=== PATIENT | male | born 2000 | race African-American/Black ===

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

== ENCOUNTER 2020-03-29 01:52 | Emergency (ER) | payer SELFPAY ==
[2020-03-29] MEDS ORDERED: Sodium Chloride 0.9% 1,000 ML ONE (02:08)
[2020-03-29] MEDS ORDERED: Morphine 4 MG/ML VIAL ONE (02:16)
[2020-03-29] MEDS ORDERED: Ondansetron PF 4 MG/2 ML Vial ONE (02:16)
[2020-03-29 02:19] LABS: #Basophils 0.1 thou/uL (0.0-0.2); #Eosinphils 0.3 thou/uL (0.0-0.7); #Lymphocytes 3.1 thou/uL (1.20-3.40); #Monocytes 0.8 thou/uL (0.11-0.59); #Neutrophils 2.7 thou/uL (1.40-6.50); %Basophils 1.5 % (0.0-1.0); %Eosinophils 4.7 % (0.0-10.0); %Lymphocytes 43.8 % (28.0-48.0); %Monocytes 11.2 % (0.0-4.0); %Neutrophils 38.7 % (31.0-61.0); Mean Corpuscular HGB CONC 31.9 g/dL (32.0-36.0); Mean Platelet Volume 7.4 fL (7.4-10.4); Platelet Count 308 thou/uL (130-400); RBC Distribution Width 11.5 % (11.5-14.5); Red Blood Cell (RBC) Count 4.99 mill/uL (4.00-5.20)
[2020-03-29 02:28] LABS: INR-International Normal Ratio 1.2; PTT 28.6 sec (22.9-36.1); Prothrombin Time 15.3 sec (12.0-14.7)
[2020-03-29] MEDS ORDERED: Adacel (T-DAP) 0.5 ML SYRINGE ONE (02:32)
[2020-03-29 02:35] LABS: ALT (SGPT) 18 U/L (8-55); AST (SGOT) 23 U/L (10-45); Albumin 4.3 g/dL (3.5-5.0); Alkaline Phosphatase 70 U/L (50-130); Anion Gap 16 mmol/L (10-20); BUN (Urea Nitrogen) 12 mg/dL (8.4-21.0); Bilirubin, Total 0.3 mg/dL (0.2-1.2); Calc. Creatinine Clearance 0 mL/min (70-130); Calcium 9.6 mg/dL (7.8-10.44); Carbon Dioxide 24 mmol/L (22-29); Chloride 105 mmol/L (98-107); Estimated GFR-MDRD 64; Globulin 3.1 g/dL (2.4-3.5); Glucose 113 mg/dL (70-105); Potassium 3.3 mmol/L (3.5-5.1); Protein, Total 7.4 g/dL (6.0-8.3); Sodium 142 mmol/L (136-145)
[2020-03-29] MEDS ORDERED: CEFAZOLIN 1 GM VIAL ONE (02:54)
[2020-03-29] MEDS ORDERED: Sodium Chloride 0.9% 100 ML ONE (02:55)
[2020-03-29] MEDS ORDERED: Sodium Chloride 0.9% 0 ML ONE (02:56)
[2020-03-29] MEDS ORDERED: Morphine 2 MG/ML SYRINGE ONE (03:07)
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
== END 2020-03-29 03:26 | disposition short-term general hospital (02) ==
LOC: NAV ERS 01:52
DX: S71.102A Unspecified open wound, left thigh, initial encounter (principal); F90.9 Attention-deficit hyperactivity disorder, unspecified type; X93.XXXA Assault by handgun discharge, initial encounter
CPT/HCPCS: 71045; 74018; 80053; 85025; 85610; 85730; 90471; 90715; 94760; 96361; 96365; 96375; 96376; J0690; J2270; J2405; J3490; J7050

== ENCOUNTER 2020-04-22 12:38 | Emergency (ER) | payer SELFPAY ==
[2020-04-22] MEDS ORDERED: CEFAZOLIN 1 GM VIAL ONE (12:51)
[2020-04-22] MEDS ORDERED: Morphine 4 MG/ML VIAL ONE ×2 (12:51→14:45)
[2020-04-22] MEDS ORDERED: Ondansetron PF 4 MG/2 ML Vial ONE (12:51)
[2020-04-22] MEDS ORDERED: Sodium Chloride 0.9% 100 ML ONE (12:51)
--- NOTE | 2020-04-22 13:09 | RAD ---
EXAM: 3 views of the left index finger HISTORY: Finger pain COMPARISON: None FINDINGS: There has been amputation of the tip of the index finger through the distal phalanx. No sof t tissue swelling is seen. No degenerative changes are present. No radiopaque foreign body is seen. 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
[2020-04-22 14:03] LABS: #Basophils 0.1 thou/uL (0.0-0.2); #Eosinphils 0.3 thou/uL (0.0-0.7); #Lymphocytes 2.5 thou/uL (1.20-3.40); #Monocytes 0.6 thou/uL (0.11-0.59); #Neutrophils 1.9 thou/uL (1.40-6.50); %Basophils 2.4 % (0.0-1.0); %Eosinophils 5.7 % (0.0-10.0); %Lymphocytes 45.7 % (28.0-48.0); %Monocytes 10.5 % (0.0-4.0); %Neutrophils 35.7 % (31.0-61.0); Hemoglobin 14.3 g/dL (14.0-18.0); Mean Corpuscular HGB CONC 31.2 g/dL (32.0-36.0); Mean Corpuscular Hemoglobin 27.8 pg (25.0-35.0); Mean Corpuscular Volume 88.9 fL (78.0-98.0); Mean Platelet Volume 6.9 fL (7.4-10.4); Platelet Count 324 thou/uL (130-400); RBC Distribution Width 11.9 % (11.5-14.5); Red Blood Cell (RBC) Count 5.14 mill/uL (4.00-5.20); White Blood Cell (WBC) Count 5.4 thou/uL (4.8-10.8)
[2020-04-22 14:07] LABS: ALT (SGPT) 22 U/L (8-55); AST (SGOT) 23 U/L (5-34); Albumin 4.5 g/dL (3.5-5.0); Alkaline Phosphatase 134 U/L (50-130); Anion Gap 13 mmol/L (10-20); BUN (Urea Nitrogen) 9 mg/dL (8.9-20.6); Bilirubin, Total 0.6 mg/dL (0.2-1.2); Calc. Creatinine Clearance 0 mL/min (70-130); Calcium 9.8 mg/dL (7.8-10.44); Carbon Dioxide 26 mmol/L (22-29); Chloride 104 mmol/L (98-107); Estimated GFR-MDRD Greater than 90; Globulin 3.3 g/dL (2.4-3.5); Glucose 90 mg/dL (70-105); Potassium 3.8 mmol/L (3.5-5.1); Protein, Total 7.8 g/dL (6.0-8.3); Sodium 139 mmol/L (136-145)
== END 2020-04-22 14:54 | disposition short-term general hospital (02) ==
LOC: NAV ERS 12:38
DX: S68.111A Complete traumatic metacarpophalangeal amputation of left index finger, initial encounter (principal); F90.9 Attention-deficit hyperactivity disorder, unspecified type; W30.9XXA Contact with unspecified agricultural machinery, initial encounter
CPT/HCPCS: 80053; 85025; 96365; 96375; 96376; J0690; J2270; J2405; J3490

== ENCOUNTER 2021-01-02 05:22 | Emergency (ER) | payer SELFPAY ==
[2021-01-02] MEDS ORDERED: Acetaminophen 500 MG TAB ONE (05:49)
[2021-01-02] MEDS ORDERED: Dexamethasone 20 MG/5 ML VIAL ONE (05:57)
== END 2021-01-02 06:35 | disposition home or self-care (01) ==
LOC: NAV ERS 05:22
DX: J02.9 Acute pharyngitis, unspecified (principal); Z20.822 Contact with and (suspected) exposure to COVID-19
CPT/HCPCS: 87081; 87430; 99283; J1100

== ENCOUNTER 2021-11-29 23:20 | Emergency (ER) | payer SELFPAY ==
[2021-11-29] MEDS ORDERED: Ibuprofen 800 MG TAB ONE (23:40)
[2021-11-30] MEDS ORDERED: Dexamethasone 4 MG TAB ONE (00:05)
== END 2021-11-30 00:45 | disposition home or self-care (01) ==
LOC: NAV ERS 23:20
DX: J02.9 Acute pharyngitis, unspecified (principal)
CPT/HCPCS: 87081; 87430; 99283; J8540

== ENCOUNTER 2022-07-06 03:17 | Emergency (ER) | payer SELFPAY | END 2022-07-06 03:56 | disposition home or self-care (01) | LOC: NAV ERS 03:17 | DX: J45.909 Unspecified asthma, uncomplicated (principal); Z86.16 Personal history of COVID-19 | CPT/HCPCS: 99283 ==

== ENCOUNTER 2022-09-04 22:11 | Emergency (ER) | payer SELFPAY | END 2022-09-04 23:29 | disposition home or self-care (01) | LOC: NAV ERS 22:11 | DX: B34.9 Viral infection, unspecified (principal) | CPT/HCPCS: 87804; 99283 ==

== ENCOUNTER 2024-07-27 05:33 | Emergency (ER) | payer SELFPAY ==
[2024-07-27] MEDS ORDERED: Ondansetron ODT 4 MG TAB ONE (05:57)
[2024-07-27 06:14] LABS: Bilirubin Negative (Negative); Blood, Urine Negative (Negative); Clarity Clear (Clear); Glucose, Urine (Dipstick) Negative (Negative); Ketone, Urine Negative (Negative); Leukocyte Negative (Negative); Nitrite Negative (Negative); Protein, Urine (Dipstick) Negative (Neg-Trace); Specific Gravity, Urine 1.015 (1.005-1.030); Urobilinogen 0.2 mg/dL (Less than 2)
[2024-07-27 06:15] LABS: #Basophils 0.1 thou/uL (0.0-0.2); #Eosinophils 0.3 thou/uL (0.0-0.7); #Lymphocytes 2.5 thou/uL (1.20-3.40); #Monocytes 0.6 thou/uL (0.11-0.59); #Neutrophils 1.8 thou/uL (1.40-6.50); %Basophils 1.7 % (0.0-1.0); %Eosinophils 5.1 % (0.0-10.0); %Lymphocytes 47.1 % (21.0-51.0); %Neutrophils 34.1 % (42.0-75.0); Hematocrit 47.5 % (42.0-52.0); Hemoglobin 15.4 g/dL (14.0-18.0); Mean Corpuscular HGB CONC 32.4 g/dL (32.0-36.0); Mean Corpuscular Hemoglobin 27.4 pg (27.0-31.0); Mean Corpuscular Volume 84.7 fl (78.0-98.0); Mean Platelet Volume 7.5 fL (7.4-10.4); Platelet Count 345 10x3/uL (130-400); RBC Distribution Width 12.3 % (11.5-14.5); White Blood Cell (WBC) Count 5.3 10x3/uL (4.8-10.8)
[2024-07-27 06:21] LABS: Amphetamine Not Detected (NotDetected); Barbiturates Screen Not Detected (NotDetected); Benzodiazepine Screen Not Detected (NotDetected); Cocaine Metabolite Screen Not Detected (NotDetected); Methadone Not Detected (NotDetected); Methamphetamine Not Detected (NotDetected); Opiate Screen Not Detected (NotDetected); Oxycodone Screen Not Detected (NotDetected); Phencyclidine (PCP) Not Detected (NotDetected); THC/Cannabinoid Screen Not Detected (NotDetected); Tricyclic Screen Not Detected (NotDetected)
[2024-07-27 06:29] LABS: Bacteria/HPF Rare-Few HPF (None Seen); CAUTI Indications for Culture Pelvic or flank pain; RBC/HPF 0-3 HPF (0-3); Urine Culture Reflex No No
[2024-07-27 06:44] LABS: ALT (SGPT) 25 U/L (8-55); AST (SGOT) 21 U/L (5-34); Albumin 4.1 g/dL (3.5-5.0); Alkaline Phosphatase 62 U/L (40-110); Anion Gap 13 mmol/L (10-20); BUN (Urea Nitrogen) 10 mg/dL (8.9-20.6); Bilirubin, Total 0.4 mg/dL (0.2-1.2); Calc. Creatinine Clearance 0 mL/min (70-130); Calcium 9.5 mg/dL (7.8-10.44); Carbon Dioxide 27 mmol/L (22-29); Chloride 104 mmol/L (98-107); Estimated GFR 87; Globulin 3.5 g/dL (2.4-3.5); Glucose 92 mg/dL (70-105); Lipase 33 U/L (8-78); Potassium 4.3 mmol/L (3.5-5.1); Protein, Total 7.6 g/dL (6.0-8.3); Sodium 140 mmol/L (136-145)
== END 2024-07-27 06:55 | disposition home or self-care (01) ==
LOC: NAV ERS 05:33
DX: A08.4 Viral intestinal infection, unspecified (principal); R03.0 Elevated blood-pressure reading, without diagnosis of hypertension
CPT/HCPCS: 36415; 80053; 80306; 81001; 83690; 85025; 99284; Q0162

== ENCOUNTER 2024-09-12 22:19 | Emergency (ER) | payer SELFPAY ==
[~2024-09-12 22:19] MED LIST: Iopamidol 370 76% 100 ML VIAL ONE
[2024-09-12] MEDS ORDERED: Ondansetron PF 4 MG/2 ML Vial ONE (22:31)
[2024-09-12] MEDS ORDERED: Morphine 4 MG/ML VIAL ONE ×2 (22:31→23:03)
[2024-09-12 22:47] LABS: Prothrombin Time 13.4 sec (12.0-14.7)
[2024-09-12 22:48] LABS: PTT 26.4 sec (22.9-36.1)
[2024-09-12 22:49] LABS: #Basophils 0.2 thou/uL (0.0-0.2); #Eosinophils 0.2 thou/uL (0.0-0.7); #Lymphocytes 3.2 thou/uL (1.20-3.40); #Monocytes 1.3 thou/uL (0.11-0.59); #Neutrophils 4.4 thou/uL (1.40-6.50); %Basophils 1.9 % (0.0-1.0); %Eosinophils 2.6 % (0.0-10.0); %Monocytes 13.7 % (0.0-10.0); %Neutrophils 47.7 % (42.0-75.0); Hematocrit 43.4 % (42.0-52.0); Hemoglobin 14.7 g/dL (14.0-18.0); Mean Corpuscular HGB CONC 33.9 g/dL (32.0-36.0); Mean Corpuscular Hemoglobin 28.4 pg (27.0-31.0); Mean Corpuscular Volume 83.7 fl (78.0-98.0); Mean Platelet Volume 6.9 fL (7.4-10.4); Platelet Count 397 10x3/uL (130-400); RBC Distribution Width 11.6 % (11.5-14.5); Red Blood Cell (RBC) Count 5.19 mill/uL (4.70-6.10); White Blood Cell (WBC) Count 9.3 10x3/uL (4.8-10.8)
[2024-09-12 22:55] LABS: ALT (SGPT) 22 U/L (8-55); AST (SGOT) 20 U/L (5-34); Albumin 4.3 g/dL (3.5-5.0); Alcohol Less than 10.0 mg/dL (Less than 10); Alkaline Phosphatase 58 U/L (40-110); Anion Gap 18 mmol/L (10-20); BUN (Urea Nitrogen) 11 mg/dL (8.9-20.6); Bilirubin, Total 0.3 mg/dL (0.2-1.2); Calc. Creatinine Clearance 0 mL/min (70-130); Calcium 9.5 mg/dL (7.8-10.44); Carbon Dioxide 22 mmol/L (22-29); Chloride 103 mmol/L (98-107); Estimated GFR 68; Globulin 3.6 g/dL (2.4-3.5); Glucose 113 mg/dL (70-105); Lipase 29 U/L (8-78); Protein, Total 7.9 g/dL (6.0-8.3); Sodium 139 mmol/L (136-145); Troponin I Less than 0.010 ng/mL (< 0.028)
[2024-09-13] MEDS ORDERED: Lidocaine 1% (PF) 30 ML VIAL ONE (00:23)
[2024-09-13 01:04] LABS: Bacteria/HPF None Seen HPF (None Seen); Bilirubin Negative (Negative); Blood, Urine Negative (Negative); CAUTI Indications for Culture Pelvic or flank pain; Clarity Clear (Clear); Glucose, Urine (Dipstick) Negative (Negative); Ketone, Urine Negative (Negative); Leukocyte Negative (Negative); Nitrite Negative (Negative); Protein, Urine (Dipstick) Negative (Neg-Trace); RBC/HPF None Seen HPF (0-3); Specific Gravity, Urine 1.015 (1.005-1.030); Squamous Epithelial None Seen HPF (0-3); Urobilinogen 0.2 mg/dL (Less than 2); WBC/HPF None Seen HPF (0-3)
[2024-09-13 01:05] LABS: Amphetamine Not Detected (NotDetected); Barbiturates Screen Not Detected (NotDetected); Benzodiazepine Screen Not Detected (NotDetected); Cocaine Metabolite Screen Not Detected (NotDetected); Methadone Not Detected (NotDetected); Methamphetamine Not Detected (NotDetected); Opiate Screen Detected (NotDetected); Oxycodone Screen Not Detected (NotDetected); Phencyclidine (PCP) Not Detected (NotDetected); THC/Cannabinoid Screen Detected (NotDetected); Tricyclic Screen Not Detected (NotDetected)
[2024-09-13 01:07] LABS: Urine Culture Reflex No No
[2024-09-13] MEDS ORDERED: Ketorolac Tromethamine 30 MG (1 mL) VIAL ONE (01:57)
[2024-09-13] MEDS ORDERED: Morphine 2 MG/ML VIAL ONE (01:57)
[2024-09-13] MEDS ORDERED: Bacitracin 1 PK ONE (02:04)
== END 2024-09-13 02:25 | disposition home or self-care (01) ==
LOC: NAV ERS 22:19
DX: S31.119A Laceration without foreign body of abdominal wall, unspecified quadrant without penetration into peritoneal cavity, initial encounter (principal); X99.1XXA Assault by knife, initial encounter
CPT/HCPCS: 12032; 71045; 74177; 80053; 80306; 80307; 81001; 83690; 84484; 85025; 85610; 85730; 86850; 86900; 86901; 93005; 94760; 96374; 96375; 96376; J1885; J2272; J2405; Q9967